=== PATIENT | male | born 1955 | race Hispanic/Latino ===

== ENCOUNTER 2019-02-24 19:33 | Inpatient (IN) | payer MEDICARE, MEDICAID ==
[~2019-02-24] VITALS: Ht 167.6 cm; Wt 97.2 kg
[~2019-02-24 19:33] MED LIST: AMOXICILLIN500 MG PO; AZITHROMYCIN500 MG PO; CIPROFLOXACN500 MG PO; TAM75CAP PO; TESSALON PER100 MG PO; ULTRAM50 M1 PO; ZITHROMAX250 MG PO
--- NOTE | 2019-02-24 19:48 | NUR ---
Pt to room # 2 with steady gait
[2019-02-24] MEDS ORDERED: BP MEDICATION (19:51)
[2019-02-24] MEDS ORDERED: CHLORESTEROL MED (19:51)
--- NOTE | 2019-02-24 20:20 | NUR ---
Pt to radiology via W/C in stable condition
[2019-02-24 20:24] LABS: HEMATOCRIT 39.1 % (39.0-50.0); HEMOGLOBIN 13.1 g/dl (14.0-18.0); IMMATURE GRANULOCYTES 1.5 % (0.0-5.0); MEAN CELL VOLUME 91.6 fL CALC (80.0-100.0); MEAN CORPUSCULAR HGB 30.7 pG CALC (26.0-32.0); MEAN CORPUSCULAR HGB CONC 33.5 g/L CALC (32.0-36.0); NEUT# 20.22 thou/uL (1.82-7.42); RED BLOOD COUNT 4.27 mill/uL (4.70-6.10); RED CELL DISTRI WIDTH 13.8 % (11.5-15.5)
[2019-02-24 20:25] LABS: URINE BILIRUBIN - DIPSTICK NEGATIVE (NEGATIVE); URINE BLOOD DIPSTICK NEGATIVE (NEGATIVE); URINE COLOR YELLOW; URINE GLUCOSE - DIPSTICK NEGATIVE (NEGATIVE); URINE KETONE NEGATIVE (NEGATIVE); URINE LEUK ESTERASE NEGATIVE (NEGATIVE); URINE NITRITE - DIPSTICK NEGATIVE (Negative); URINE PROTEIN - DIPSTICK NEGATIVE (NEG-TRACE); URINE UROBILINOGEN - DIPSTICK 0.2 E.U./dL (0.2)
[2019-02-24] MEDS ORDERED: AMLODIPINE BESY10 MG PO (20:29)
[2019-02-24] MEDS ORDERED: HYZAAR1 TA2 PO (20:29)
[2019-02-24] MEDS ORDERED: ATORVASTATIN CA20 MG PO (20:30)
--- NOTE | 2019-02-24 20:30 | NUR ---
Pt returned to room # 2 from radiology in stable condition. Explained wait time for results. Showed understanding. Call castellon within reach. Denies any needs at this time. Will continue to monitor.
[2019-02-24 20:37] LABS: ALKALINE PHOSPHATASE 124 u/l (38-126); ANION GAP 14 (6-22 (CALC)); BUN 18 mg/dL (8-23); BUN/CREATININE RATIO 21 (12-20 (CALC)); CARBON DIOXIDE 28 mmol/l (22-30); CHLORIDE 100 mmol/l (95-108); CREATININE 0.9 mg/dL (0.7-1.3); GFR > 60 ML/MIN (>=60 (CALC)); GFR FOR AFR.AMER. > 60 ML/MIN (>=60 (CALC)); POTASSIUM 3.5 mmol/l (3.5-5.1); SGOT/AST 25 u/l (19-48); SODIUM 138 mmol/l (137-146)
[2019-02-24 20:38] LABS: ALBUMIN 4.3 g/dL (3.2-5.0); BILIRUBIN, TOTAL 0.7 mg/dL (0.0-1.4); TOTAL PROTEIN 7.8 g/dL (6.3-8.2)
--- NOTE | 2019-02-24 21:10 | NUR ---
EDP at bedside to discuss clinical findings with pt and inform of additional testing needed. Pt showed understanding. Call castellon within reach. Denies any needs at this time. Will continue to monitor.
--- NOTE | 2019-02-24 21:30 | NUR ---
Pt to be moved to room # 12. Report given to GUERO Cortez. Care relinquished at this time
--- NOTE | 2019-02-24 21:35 | NUR ---
Pt to radiology for additional tests ordered by EDP. Pt to return to room # 12 when coming back from CT.
--- NOTE | 2019-02-24 22:39 | NUR ---
LAB HERE TO COLLECT REPEAT LABS.
--- NOTE | 2019-02-24 22:54 | NUR ---
CALLED TO GIVE REPORT. RONY WILL CALL BACK.
--- NOTE | 2019-02-24 23:24 | NUR ---
REPORT CALLED TO GUERO URIBE.
--- NOTE | 2019-02-24 23:30 | NUR ---
TO FLOOR VIA STRETCHER. ZITHROMAX INFUSING. PT RESTING. SHOES/SHIRT/CANE/HAT TO FLOOR WITH PT. PT WEARING PANTS. SON TOOK HOME EARLIER. UPON ARRIVAL TO FLOOR PT AMBULATRED TO SCALE AND THEN TO BED.
[2019-02-24 23:40] VITALS: BP 120/76
--- NOTE | 2019-02-24 23:40 | NUR ---
PT ARRIVED TO THE FLOOR VIA STRETCHER, ACCOMPANIED BY ER STAFF. PT AMBULATED FROM STRETCHER TO SCALE TO BED. VS OBTAINED AND ASSESSMENT COMPLETED. PT ALERT AND ORIENTED. RESPIRATIONS EVEN AND UNLABORED ON RA. LUNGS SOUND CLEAR. PEDAL PULSES STRONG. #20 RFA, PATENT AND APPEARS HEALTHY. PT ORIENTED TO ROOM AND CALL TSE SYSTEM. SAFETY PRECAUTIONS IN PLACE. WILL CONTINUE TO MONITOR.
[2019-02-25 03:45] VITALS: BP 129/65
--- NOTE | 2019-02-25 04:25 | NUR ---
PT RESTING IN BED NOT S/S OF DISTRESS AT THIS TIME. SAFETY PRECAUTIONS IN PLACE WILL CONTINUE TO MONITOR.
[2019-02-25 05:35] LABS: HEMATOCRIT 39.8 % (39.0-50.0); HEMOGLOBIN 12.2 g/dl (14.0-18.0); IMMATURE GRANULOCYTES 1.1 % (0.0-5.0); MEAN CORPUSCULAR HGB 32.6 pG CALC (26.0-32.0); MEAN CORPUSCULAR HGB CONC 30.7 g/L CALC (32.0-36.0); NEUT# 23.55 thou/uL (1.82-7.42); RED BLOOD COUNT 3.74 mill/uL (4.70-6.10); RED CELL DISTRI WIDTH 14.7 % (11.5-15.5)
[2019-02-25 06:03] LABS: MEAN CELL VOLUME 106.4 fL CALC (80.0-100.0)
--- NOTE | 2019-02-25 06:58 | NUR ---
REPORT RECEIVED FROM RONY RN; PT LAYING IN BED AWAKE, RESP EVEN AND UNLABORED; VOICE NO CONCERNS; TEMP 100.2; CALL TSE IN REACH.
[2019-02-25 08:27] VITALS: BP 117/67
--- NOTE | 2019-02-25 08:45 | NUR ---
PT SITTING UP IN BED WATCHING TV; #20 RAC, FLUSHED FREELY; SITE APPEARS HEALTHY; MEDICATED PER EMAR; CONSENT OBTAINED FOR PNEUMONIA VACCINE; VITALS STABLE; VOICE NO CONCERNS; CALL TSE IN REACH; WILL CONTINUE TO MONITOR.
--- NOTE | 2019-02-25 10:31 | NUR ---
DR SANDERS AT BEDSIDE TO DISCUSS POC
[2019-02-25 11:41] VITALS: BP 132/76
--- NOTE | 2019-02-25 11:48 | NUR ---
PT SITTINGUP IN BED AWAKE AND WATCHING TV; MEDICATED WITH TYLENOL FOR TEMP 101.3; COOL WASH CLOTH APPLIED TO FOREHEAD; STATES "I WILL EAT LUNCH LATER" CALL TSE IN REACH.
[2019-02-25 12:00] VITALS: BP 114/64
--- NOTE | 2019-02-25 13:53 | NUR ---
Vancomycin consult Age: 63 yo Serum creatinine: 0.9 mg/dL Height: 66.0 Inches Weight (kg): 97.2 IBW (kg): 63.80 Dosing wt(kg): 97.2 Estimated Creatinine clearance (ml/min): 75.8 Vd (liters): 68.0 (factor used: 0.7 L/kg) Cecil (hr-1): 0.067 Half life (hrs): 10.35 Vancomycin 1250 mg q 12 hrs with an expected Cpeak of 31 mcg/ml and an expected Ctrough of 16 mcg/ml
--- NOTE | 2019-02-25 14:44 | NUR ---
PT SITTING UP IN BED WATCHING TV; AMBULATORY IN ROOM; VANCOMYCIN INFUSING WITHOUT DIFFICULTY; TEMP 100.7, COLD PACK APPLIED TO BRING TEMP DOWN; PT VOICE NO CONCERNS; CALL TSE IN REACH; FAMILY MEMBER PRESENT;
[2019-02-25 14:47] VITALS: BP 114/64
--- NOTE | 2019-02-25 16:23 | NUR ---
PT WATCHING TV; TEMP 99.7; VANCO INFUSING WELL; EMPTIED 300CC CLEAR IRIS URINE FROM URINAL; VOICE NO CONCERNS; SON PRESENT IN ROOM.
--- NOTE | 2019-02-25 17:41 | NUR ---
TEMP 101.5 PT REQ MOTRIN INSTEAD OF TYLENOL, SAYS LAST NIGHT MOTRIN WORKED GREAT; AWAITING NEW ORDERS FROM MD; COLD PACK APPLIED TO UNDER ARMS; FAMILY MEMBERS PRESENT IN ROOM. VOICE NO OTHER CONCERNS;
--- NOTE | 2019-02-25 19:00 | NUR ---
REPORT RECIEVED FROM MATTI LAWS. PT RESTING IN BED, NO S/S OF DISTRESS ATHIS TIME. SAFETY PRECAUTIONS IN PLACE. WILL CONTINUE TO MONITOR.
[2019-02-25 19:05] VITALS: BP 138/70
--- NOTE | 2019-02-25 19:05 | NUR ---
TEMPT 102. PT REQ A SHOWER, HIS IS ASSISTING WITH SHOWER.
--- NOTE | 2019-02-25 21:15 | NUR ---
PT RESTING IN BED ALERT AND ORIENTED. RESPIRATIONS EVEN AND UNLABORED ON RA. LUNGS SOUND CLEAR. PEDAL PULSES STRONG. PT DENIES ANY PAIN OR DISCOMFORT AT THIS TIME. CALL TSE WITHIN REACH, WILL CONTINUE TO MONITOR.
--- NOTE | 2019-02-26 00:29 | NUR ---
PT RESTING IN BED WITH EYES CLOSED. NO S/S OF DISTRESS AT THIS TIME. SAFETY PRECAUTIONS IN PLACE. WILL CONTINUE TO MONITOR.
[2019-02-26 04:21] VITALS: BP 121/74
--- NOTE | 2019-02-26 04:30 | NUR ---
PT RESTING IN BED. RESPIRATIONS EVEN AND UNLABORED ON RA. SAFETY PRECAUTIONS IN PLACE. WILL CONTINUE TO MONITOR.
[2019-02-26 05:28] LABS: HEMATOCRIT 38.7 % (39.0-50.0); HEMOGLOBIN 12.7 g/dl (14.0-18.0); IMMATURE GRANULOCYTES 0.5 % (0.0-5.0); MEAN CORPUSCULAR HGB 30.5 pG CALC (26.0-32.0); MEAN CORPUSCULAR HGB CONC 32.8 g/L CALC (32.0-36.0); NEUT# 10.28 thou/uL (1.82-7.42); RED BLOOD COUNT 4.16 mill/uL (4.70-6.10); RED CELL DISTRI WIDTH 14.3 % (11.5-15.5)
[2019-02-26 06:04] LABS: ALBUMIN 3.5 g/dL (3.2-5.0); ALKALINE PHOSPHATASE 89 u/l (38-126); ANION GAP 12 (6-22 (CALC)); BILIRUBIN, TOTAL 0.5 mg/dL (0.0-1.4); BUN 13 mg/dL (8-23); BUN/CREATININE RATIO 19 (12-20 (CALC)); CARBON DIOXIDE 28 mmol/l (22-30); CHLORIDE 105 mmol/l (95-108); CREATININE 0.7 mg/dL (0.7-1.3); GFR > 60 ML/MIN (>=60 (CALC)); GFR FOR AFR.AMER. > 60 ML/MIN (>=60 (CALC)); POTASSIUM 3.3 mmol/l (3.5-5.1); SGOT/AST 26 u/l (19-48); SODIUM 141 mmol/l (137-146); TOTAL PROTEIN 6.6 g/dL (6.3-8.2)
--- NOTE | 2019-02-26 07:07 | NUR ---
REPORT RECEIVED FROM RONY RN; PT LAYING AWAKE IN BED; A/O; CALL TSE ANNALISA.
[2019-02-26 07:46] VITALS: BP 145/84
--- NOTE | 2019-02-26 08:05 | NUR ---
PT SITTING UP EDGE OF BED EATING BREAKFAST; ASSESSMENT COMPLETED; VITALS STABLE; AM MEDS ADMINISTERED; #20G RFA LEAKING; WILL STRAT NEW IV; VOICE NO CONCERNS; CALL TSE IN REACH.
--- NOTE | 2019-02-26 09:17 | NUR ---
NEW IV START #20G LAC, NS INFSING AT 100CC/HR; OLD IV REMOVED, CATH INTACT; PT TOLERATED WELL. VOICE NO CONCERNS;
--- NOTE | 2019-02-26 12:44 | NUR ---
PT SITTING UP IN BED VISITING WITH FAMILY MEMBERS; RESP EVEN AND UNLABORED; IVF INFUSING WITHOUT DIFFICULTY; VOICE NO CONCERNS; CALL STE IN REACH.
[2019-02-26 15:42] VITALS: BP 162/69
--- NOTE | 2019-02-26 15:55 | NUR ---
PT SITTING UP IN RECLINER; RESP EVEN AND UNLABORED; TEMP 99.1 MEDICATED WITH MOTRIN; IVF INFUSING WITHOUT DIFFICULTY; CALL TSE IN REACH.
--- NOTE | 2019-02-26 18:47 | NUR ---
PT LAYING IN BED AWAKE; TEMP 98.3; RESP EVEN AND UNLABORED; VOICE NO CONCERNS; CALL TSE IN REACH.
[2019-02-26 19:30] VITALS: BP 145/86
--- NOTE | 2019-02-26 19:30 | NUR ---
PATIENT RESTING IN BED AWAKE ALERT AND ORIENTEDX3. PATIENT IS MOSTLY ARMENIAN SPEAKING. FAMILY AT BEDSIDE AND SON IS ABLE TO TRANSLATE FOR STAFF. PATIENT IS AFEBRILE AT THIS TIME. NO COMPLAINTS AT THIS TIME. IVF PATENT AND INFUSING AT 100CC/HR VIA LEFT AC SITE. SITE APPEARS HEALTHY AT THIS TIME. DENIES ANY DIFFICULTY WITH VOIDING. STATES THAT LAST BM WAS TODAY. SAFETY PRECAUTIONS REINFORCED. CALL LIGHT IN REACH. WILL CONT TO MONITOR.
--- NOTE | 2019-02-27 00:10 | NUR ---
AFEBRILE AND APPEARS RESTING COMFORTABLY WITH EYES CLOSED. RESP ARE EVEN AND UNLABORED. IVF PATENT AND INFUSING AT 100CC/HR-SITE REMAINS HEALTHY AT THIS TIME. CALL LIGHT IN REACH. WILL CONT TO MONITOR.
[2019-02-27 03:13] VITALS: BP 136/84
--- NOTE | 2019-02-27 03:18 | NUR ---
PATIENT RESTING IN BED WITH NO COMPLAINTS AT THIS TIME. IV VANCO HUNG ORDERED VIA LEFT AC SITE. SITE REMAINS HEALTHY AT THIS TIME. CALL LIGHT IN REACH. WILL CONT TO MONITOR.
[2019-02-27 05:49] LABS: HEMATOCRIT 37.7 % (39.0-50.0); HEMOGLOBIN 12.1 g/dl (14.0-18.0); IMMATURE GRANULOCYTES 0.7 % (0.0-5.0); MEAN CELL VOLUME 93.8 fL CALC (80.0-100.0); MEAN CORPUSCULAR HGB 30.1 pG CALC (26.0-32.0); MEAN CORPUSCULAR HGB CONC 32.1 g/L CALC (32.0-36.0); NEUT# 5.28 thou/uL (1.82-7.42); RED BLOOD COUNT 4.02 mill/uL (4.70-6.10); RED CELL DISTRI WIDTH 14.1 % (11.5-15.5)
[2019-02-27 05:58] LABS: ANION GAP 12 (6-22 (CALC)); BUN 11 mg/dL (8-23); BUN/CREATININE RATIO 18 (12-20 (CALC)); CARBON DIOXIDE 25 mmol/l (22-30); CHLORIDE 108 mmol/l (95-108); CREATININE 0.6 mg/dL (0.7-1.3); GFR > 60 ML/MIN (>=60 (CALC)); GFR FOR AFR.AMER. > 60 ML/MIN (>=60 (CALC)); SODIUM 141 mmol/l (137-146)
[2019-02-27 05:59] LABS: CHOLESTEROL HDL RATIO 3.3 (<4.4 (CALC))
[2019-02-27 06:02] LABS: POTASSIUM 4.3 mmol/l (3.5-5.1)
[2019-02-27 07:40] VITALS: BP 163/85
--- NOTE | 2019-02-27 07:40 | NUR ---
ASSESSMENT IS COMPLETED: IV SITE IS FREE FROM REDNESS OR EDEMA. HR IS REG,PULSES ARE STRONG X4, ABD IS SOFT WITH ACTIVE BS, BREATH SOUNDS ARE CLEAR, BILATERLLY. CONITNUE TO OBSERVE AND MONITOR.
[2019-02-27 09:05] VITALS: BP 163/85
[2019-02-27] MEDS ORDERED: FLORASTOR250 M1 PO (10:22)
[2019-02-27] MEDS ORDERED: DOXYCYCL HYC100 MG PO (10:22)
[2019-02-27] MEDS ORDERED: AMOX/K CLAV875 M1 PO (10:22)
--- NOTE | 2019-02-27 11:00 | NUR ---
PT TRANSPORTED TO HAVE US OF THE LEGS
--- NOTE | 2019-02-27 12:00 | NUR ---
PT IS SITTING ON THE SIDE OF THE BED, WITH NO DISTRESS NOTED. IV SITE IS FREE FROM REDNESS OR EDEMA. CONTINUE TO OBSERVE AND MONITOR.
--- NOTE | 2019-02-27 13:20 | NUR ---
IV SITE DISCONITNUED CATHETER INTACT NO REDNESS OR EDEMA. DISCHARGE INSTRUCTIONS GIVEN AND VERBALIZED UNDERSTANDING. Discharge instructions given. Patient verbalizes understanding of same. Discharged in stable condition via Wheelchair to Home with family. All belongings sent with pt.
== END 2019-02-27 13:20 | disposition home or self-care (01) | DRG 872 ==
LOC: ED 19:33 → ED-I 22:16 → ED 22:34 → MS2 22:35
PROVIDERS: Family Medicine; Nurse Practitioner Family; ADMIT Internal Medicine; ATTEND Internal Medicine
PROC: 3E0234Z Introduction of Serum, Toxoid and Vaccine into Muscle, Percutaneous Approach (ICD-10-PCS; principal; 2019-02-25)
DX: A41.9 Sepsis, unspecified organism (principal); L03.116 Cellulitis of left lower limb; E86.0 Dehydration; I10 Essential (primary) hypertension; E78.5 Hyperlipidemia, unspecified; L27.1 Localized skin eruption due to drugs and medicaments taken internally; L29.8 Other pruritus; T46.6X5A Adverse effect of antihyperlipidemic and antiarteriosclerotic drugs, initial encounter; Z23 Encounter for immunization
CPT/HCPCS: J0692; J3370; Q9967

== ENCOUNTER 2020-03-18 09:02 | Observation (INO) | payer MEDICARE, MEDICAID ==
[~2020-03-18] VITALS: Ht 167.6 cm; Wt 92.0 kg
[~2020-03-18 09:02] MED LIST changes: +AMLODIPINE BESY10 MG PO; +AMOX/K CLAV875 M1 PO; +ATORVASTATIN CA20 MG PO; +BP MEDICATION; +CHLORESTEROL MED; +DOXYCYCL HYC100 MG PO; +FLORASTOR250 M1 PO; +HYZAAR1 TA2 PO
--- NOTE | 2020-03-18 09:10 | NUR ---
PT AMBULATES TO ROOM WITH STEADY GAIT FOR BEDSIDE TRAIGE
[2020-03-18 10:09] LABS: HEMATOCRIT 38.7 % (39.0-50.0); HEMOGLOBIN 12.6 g/dl (14.0-18.0); IMMATURE GRANULOCYTES 0.7 % (0.0-5.0); MEAN CELL VOLUME 90.4 fL CALC (80.0-100.0); MEAN CORPUSCULAR HGB 29.4 pG CALC (26.0-32.0); MEAN CORPUSCULAR HGB CONC 32.6 g/dL CAL (32.0-36.0); NEUT# 6.96 thou/uL (1.82-7.42); RED BLOOD COUNT 4.28 mill/uL (4.70-6.10); RED CELL DISTRI WIDTH 14.2 % (11.5-15.5)
--- NOTE | 2020-03-18 10:10 | NUR ---
PT RESTING ON STRETCHER; NO S/S OF DISTRESS NOTED; MONITORING DEVICES IN PLACE; VSS; WILL CONTINUE TO MONITOR
[2020-03-18 10:24] LABS: ALBUMIN 3.6 g/dL (3.2-5.0); ALKALINE PHOSPHATASE 89 u/l (38-126); ANION GAP 11 (6-22 (CALC)); BILIRUBIN, TOTAL 0.5 mg/dL (0.0-1.4); BUN 10 mg/dL (8-23); BUN/CREATININE RATIO 16 (12-20 (CALC)); CARBON DIOXIDE 24 mmol/l (22-30); CHLORIDE 106 mmol/l (95-108); CREATININE 0.6 mg/dL (0.7-1.3); GFR > 60 ML/MIN (>=60 (CALC)); GFR FOR AFR.AMER. > 60 ML/MIN (>=60 (CALC)); SGOT/AST 33 u/l (19-48); SODIUM 138 mmol/l (137-146); TOTAL PROTEIN 6.9 g/dL (6.3-8.2)
[2020-03-18 10:25] LABS: D-DIMER 0.95 mg/L (0.19-0.60); POTASSIUM 3.4 mmol/l (3.5-5.1)
[2020-03-18 10:29] LABS: ACT PARTIAL THROMBO TIME 25.1 SECONDS (20.0-32.5); PROTHROMBIN TIME 9.9 SECONDS (9.0-12.5)
--- NOTE | 2020-03-18 11:05 | NUR ---
PT TO RADIOLOGY IN STABLE CONDITION
--- NOTE | 2020-03-18 12:00 | NUR ---
PT RESTING ON STRETCHER; NO S/S OF DISTRESS NOTED; ADVISED PT AND FAMILY OF CONTINUED WAIT TIME; VSS; WILL CONTINUE TO MONITOR
--- NOTE | 2020-03-18 13:30 | NUR ---
Admission Note Report Given to: GUERO LAM Transported by: X Wheelchair Stretcher Transported with: X Nurse Transporter X Patent IV O2 X Supervisor Capacitor Processing Location: ICU X [facility]
--- NOTE | 2020-03-18 13:30 | NUR ---
DR WILCOX AT BEDSIDE TO DISCUSS POC AND PLAN TO ADMIT
--- NOTE | 2020-03-18 14:00 | NUR ---
PT WAS ADMITTED TO FLOOR VIA WHEELCHAIR TO COVID UNIT. PT IS ALERT AND ORIENTED AND ABLE TO MAKE NEEDS KNOWN. SKIN WARM TO TOUCH. SKIN ASSESSED AND NO SKIN CONCERNS NOTED. RESPIRATION IS EVEN AND NON LABORED. PT HAS NON PRODUCTIVE COUGH NOTED SINCE ADMISSION TO FLOOR. LUNG SOUNDS ASSESSED AND RALES NOTED TO UPPER LOBES AND DIMINISHED LOWER LOBES. ABDOMEN IS SOFT AND NON TENDER. BOWEL SOUNDS HEARD IN ALL QUADRANTS. PT IS AMBULATORY WITH STEADY GAIT/BALANCE. EDUCATION DONE WITH PT ON FALL PREVENTIONS AND SAFETY AWARE WELL NEED FOR SPUTUM CULTURE. CALL LIGHT WITHIN REACH. WILL CONTINUE TO OBSERVE
[2020-03-18 14:03] VITALS: BP 155/78
[2020-03-18 15:40] VITALS: BP 151/77
--- NOTE | 2020-03-18 18:27 | NUR ---
PT IN BED WITH NO S/S OF DISTRESS. ABLE TO VERBALIZE NEEDS. NO RESPIRATORY DISTRESS NOTED. DENIES PAIN. CALL LIGHT WITHIN REACH. WILL CONTINUE TO OBSERVE
--- NOTE | 2020-03-18 19:15 | NUR ---
REPORT FROM KATHERINE JACK. PT NOTED RESTING IN BED WITH EYES CLOSED. PT WAKES EASILY. ALERT AND ORIENTED. NO APPARENT DISTRESS NOTED. PT DENIES ANY PAIN OR SOB, ON RA. IV SITE APPEARS HEALTHY. GUN SYNCHRONIZER IN PLACE. DISCUSSED POC. PT VERBALIZED UNDERSTANDING. CALL LIGHT WITHIN REACH. WILL CONTINUE TO MONITOR.
[2020-03-18 19:17] VITALS: BP 150/86
--- NOTE | 2020-03-18 21:30 | NUR ---
PT MEDICATED ORDERED. FRESH ICE WATER PROVIDED. PT REQUESTING SOMETHING FOR HIS COUGH AT THIS TIME. TELEPHONE ORDERS RECEIVED FROM OPTICAL GLASS INSPECTOR PHYSICIAN AT THIS TIME. WILL MEDICATE WHEN PROFILED. PT DENIES ANY OTHER WANTS OR NEEDS. NO APPARENT DISTRESS NOTED. CALL LIGHT WITHIN REACH. WILL CONTINUE TO MONITOR.
[2020-03-19 00:06] VITALS: BP 155/71
--- NOTE | 2020-03-19 00:31 | NUR ---
PT RESTING IN BED WITH EYES CLOSED. NO APPARENT DISTRESS NOTED. RESPIRATIONS EVEN AND UNLABORED. FURNACE PROCESS SUPERVISOR IN PLACE. CALL LIGHT WITHIN REACH. WILL CONTINUE TO MONITOR.
--- NOTE | 2020-03-19 04:23 | NUR ---
PT RESTING IN BED. NO APPARENT DISTRESS NOTED. RESPIRATIONS EVEN AND UNLABORED. CALL LIGHT WITHIN REACH. WILL CONTINUE TO MONITOR.
[2020-03-19 04:43] VITALS: BP 154/83
[2020-03-19 05:42] LABS: HEMOGLOBIN 13.4 g/dl (14.0-18.0); IMMATURE GRANULOCYTES 1.1 % (0.0-5.0); MEAN CELL VOLUME 90.1 fL CALC (80.0-100.0); MEAN CORPUSCULAR HGB 29.5 pG CALC (26.0-32.0); MEAN CORPUSCULAR HGB CONC 32.7 g/dL CAL (32.0-36.0); NEUT# 7.1 thou/uL (1.82-7.42); RED BLOOD COUNT 4.55 mill/uL (4.70-6.10); RED CELL DISTRI WIDTH 14.1 % (11.5-15.5)
[2020-03-19 06:10] LABS: ALBUMIN 3.7 g/dL (3.2-5.0); ALKALINE PHOSPHATASE 95 u/l (38-126); ANION GAP 14 (6-22 (CALC)); BILIRUBIN, TOTAL 0.5 mg/dL (0.0-1.4); BUN 12 mg/dL (8-23); BUN/CREATININE RATIO 22 (12-20 (CALC)); C-REACTIVE PROTEIN 5.8 mg/dL (0-0.9); CARBON DIOXIDE 24 mmol/l (22-30); CHLORIDE 105 mmol/l (95-108); CREATININE 0.5 mg/dL (0.7-1.3); GFR > 60 ML/MIN (>=60 (CALC)); GFR FOR AFR.AMER. > 60 ML/MIN (>=60 (CALC)); POTASSIUM 3.9 mmol/l (3.5-5.1); SGOT/AST 30 u/l (19-48); SODIUM 139 mmol/l (137-146); TOTAL PROTEIN 7.4 g/dL (6.3-8.2)
[2020-03-19 07:48] VITALS: BP 160/85
--- NOTE | 2020-03-19 07:50 | NUR ---
RECIEVED REPORT FROM MATTI AMARO. PT SITTING UP ON SIDE OF BED UPON ENETERING ROOM.INTRODUCED SELF TO PT AND DISCUSSED POC.ASSESSMENT AND VITALS COMPLETED. RESPIRATIONS ARE EVEN AND UNLABORED WITH NO SIGNS OF DISTRESS.LUNG SOUNDS ARE DIMINISHED, PT COMPLAINS OF SOB ONLY WHEN COUGHING. NON PRODUCTIVE COUGH NOTED AT THIS TIME. HEART RHYTHM IS NORMAL WITH TELE IN PLACE. BOWEL SOUNDS ARE HYPO ACTIVE,LAST REPORTED BM 03/18/20. RADIAL AND PEDAL PULSES ARE STRONG WITH NORMAL CAPILLARY REFILL. IV FLUSHED, SITE APPERS HEALTHY AND PATENT. PT DENIES ANY PAIN OR DISCOMFORTS AT THIS TIME. WRITTER RE-EDUCATED PT DIPLOMATIC OFFICER LIGHT AND SYSTEM. PT VERBALIZED UNDERSTANDING. ALL SAFETY PRECAUTIONS ARE IN PLACE WITH CALL LIGHT IN REACH. WILL CONTINUE TO MONITOR
[2020-03-19 09:32] VITALS: BP 160/85
[2020-03-19] MEDS ORDERED: GUAIFENESI100 MG/51 PO (10:05)
[2020-03-19] MEDS ORDERED: CLARITIN10 M2 PO (10:05)
[2020-03-19] MEDS ORDERED: ZITHROMAX250 MG PO (10:05)
--- NOTE | 2020-03-19 11:44 | NUR ---
Discharge instructions given. Patient verbalizes understanding of same. Discharged in stable condition via Wheelchair to Home with staff. All belongings sent with pt. PT EDUCATED ON DISCHARGE INSTRUCTIONS AND NEW MEDICATIONS CLARITIN, ZITHRO, AND ROBITUSSIN. GUERO GRANT ASSISTED WITH TRANSLATION. PT VERBALIZED UNDERSTANDING. IV REMOVED WITH CATHATER STILL INTACT. PT TOLERATED WELL. PT LEFT MED SURG WITH ALL BELONGINGS AND DISCHARGE INSTRUCTIONS.
--- NOTE | 2020-03-20 11:36 | NUR ---
Notified patient's son of positive Covid results. Advised patient to quarantine until contacted by [facility] with further instructions. Advised to return to ED with any urgent needs. Advised to continue all medications as prescribed by physician at discharge. Verbalized understanding. Yolande Murrieta, coordinating producer, also spoke with patient and reviewed all as above.
== END 2020-03-19 11:44 | disposition home or self-care (01) ==
LOC: ED 09:02 → ED-I 12:16 → ED 12:29 → MS2 12:30
PROVIDERS: ADMIT Internal Medicine; ATTEND Internal Medicine
DX: U07.1 COVID-19 (principal); J12.89 Other viral pneumonia; R04.2 Hemoptysis; I10 Essential (primary) hypertension; E78.5 Hyperlipidemia, unspecified
CPT/HCPCS: G0378; J1650; Q9967

== ENCOUNTER 2024-07-04 09:26 | Emergency (ER) | payer MEDICARE, MEDICAID ==
[~2024-07-04] VITALS: Ht 167.6 cm; Wt 135.0 kg
[~2024-07-04 09:26] MED LIST changes: +CLARITIN10 M2 PO; +GUAIFENESI100 MG/51 PO
[2024-07-04 09:37] VITALS: BP 165/80
[2024-07-04] MEDS ORDERED: BACTRIM DS1 TAB PO (09:42)
[2024-07-04] MEDS ORDERED: CEPHALEXIN500 M1 PO (09:42)
[2024-07-04 09:46] VITALS: BP 165/85
[2024-07-04 10:16] VITALS: BP 140/79
== END 2024-07-04 10:28 | disposition home or self-care (01) ==
LOC: ED 09:26
DX: L03.115 Cellulitis of right lower limb (principal); I10 Essential (primary) hypertension

== ENCOUNTER 2024-10-14 16:01 | Emergency (ER) | payer MEDICARE, MEDICAID ==
[2024-10-14] VITALS (12 sets, daily range): BP systolic 98–152; BP diastolic 54–103
[~2024-10-14] VITALS: Ht 167.6 cm; Wt 91.0 kg
[~2024-10-14 16:01] MED LIST changes: +BACTRIM DS1 TAB PO; +CEPHALEXIN500 M1 PO
[2024-10-14 17:12] LABS: BASO% 0.1 % (0-3); EOS% 0.6 % (0-8); HEMATOCRIT 39.5 % (39.0-50.0); HEMOGLOBIN 13.3 g/dl (14.0-18.0); IMMATURE GRANULOCYTES 0.3 % (0.0-5.0); LYMPH% 4.1 % (15-41); MEAN CELL VOLUME 91.2 fL CALC (80.0-100.0); MEAN CORPUSCULAR HGB 30.7 pG CALC (26.0-32.0); MEAN CORPUSCULAR HGB CONC 33.7 g/dL CAL (32.0-36.0); MONO% 4.9 % (2-13); NEUT# 15.83 thou/uL (1.82-7.42); RED BLOOD COUNT 4.33 mill/uL (4.70-6.10); RED CELL DISTRI WIDTH 13.8 % (11.5-15.5)
[2024-10-14] MEDS ORDERED: SODIUM CHLORIDE 0.9% 1,000 ML IV ONE (17:15)
[2024-10-14] MEDS ORDERED: ACETAMINOPHEN 325 MG/TAB PO ONE (17:15)
[2024-10-14 17:27] LABS: URINE BILIRUBIN - DIPSTICK Negative (NEGATIVE); URINE BLOOD DIPSTICK Negative (NEGATIVE); URINE GLUCOSE - DIPSTICK Negative (NEGATIVE); URINE KETONE Negative (NEGATIVE); URINE LEUK ESTERASE Negative (NEGATIVE); URINE NITRITE - DIPSTICK Negative (Negative); URINE PROTEIN - DIPSTICK Negative (NEG-TRACE); URINE UROBILINOGEN - DIPSTICK 0.2 E.U./dL (0.2)
[2024-10-14 17:28] LABS: URINE COLOR Yellow
[2024-10-14 17:32] LABS: ALBUMIN 4.1 g/dL (3.2-5.0); BILIRUBIN, TOTAL 0.6 mg/dL (0.2-1.3); CREATININE 0.7 mg/dL (0.7-1.3); TOTAL PROTEIN 7.2 g/dL (6.3-8.2)
[2024-10-14] MEDS ORDERED: DOXYCYCLINE100 MG PO (18:35)
== END 2024-10-14 19:12 | disposition home or self-care (01) ==
LOC: ED 16:01
PROVIDERS: Family Medicine
DX: J18.9 Pneumonia, unspecified organism (principal); I10 Essential (primary) hypertension; E78.00 Pure hypercholesterolemia, unspecified; Z20.822 Contact with and (suspected) exposure to COVID-19
CPT/HCPCS: J0696